=== PATIENT | female | born 1975 | race Caucasian/White ===

== ENCOUNTER → 2018-04-16 | Outpatient (CLI) | payer OTHER | END | disposition home or self-care (01) | LOC: RADUSWWP 07:36 | PROVIDERS: ATTEND Internal Medicine | DX: R23.0 Cyanosis (principal) | CPT/HCPCS: 93923 ==

== ENCOUNTER → 2023-11-17 | Outpatient (CLI) | payer OTHER ==
[2023-11-17 16:24] LABS: Chol/HDL Ratio 3.66 Ratio; LDL Cholesterol,Calculated 93.3 mg/dL (0.0-131.0); VLDL Calculation 18.62 mg/dL (5.00-40.00)
[2023-11-17 16:25] LABS: Basophils # (A) 0.06 X 10*3/uL (0.00-0.10); Basophils % (A) 0.9 %; Eosinophils # (A) 0.14 X 10*3/uL (0.04-0.35); Eosinophils % (A) 2.2 %; HGB 14.7 g/dL (12.0-15.0); Lymphocytes # (A) 1.76 X 10*3/uL (0.90-5.00); Lymphocytes % (A) 27.1 %; MCHC 33.4 g/dL (32.0-37.0); MCV 89.8 FL (80.0-97.0); Mean Platelet Volume 10.9 FL (9.5-12.2); Monocytes # (A) 0.39 X 10*3/uL (0.20-1.00); NRBC Per 100 WBC 0 X 10*3/uL (0.00-0.01); Neutrophils # (A) 4.12 X 10*3/uL (1.80-7.70); Neutrophils % (A) 63.5 %; Platelet Count 267 X 10*3/uL (140-440); RDW 12.4 % (11.5-14.5); WBC 6.49 X 10*3/uL (4.50-10.00)
[2023-11-17 16:41] LABS: ALT 16 U/L (8-44); AST 14 U/L (13-35); Albumin 4.3 g/dL (3.8-4.9); Albumin/Globulin Ratio 2.39 Ratio (1.60-3.17); Alkaline Phosphatase 78 U/L (41-126); BUN/Creat Ratio 18.33 Ratio (12.00-20.00); Calcium 9.2 mg/dL (8.7-10.3); Carbon Dioxide 22.6 mmol/L (21.6-31.8); Chloride 107 mmol/L (96-109); Globulin 1.8 g/dL (1.6-3.3); Glucose 102 mg/dL (70-110); Potassium 4.4 mmol/L (3.5-5.5); Sodium 140 mmol/L (135-145); Total Bilirubin <0.2 mg/dL (0.3-1.2); Total Protein 6.1 g/dL (6.2-8.2)
== END | disposition home or self-care (01) ==
LOC: LABWHC1 08:07
PROVIDERS: ATTEND Internal Medicine
DX: Z00.01 Encounter for general adult medical examination with abnormal findings (principal); Z13.220 Encounter for screening for lipoid disorders; E55.9 Vitamin D deficiency, unspecified; R53.83 Other fatigue
CPT/HCPCS: 36415; 80053; 80061; 82306; 84443; 85025

== ENCOUNTER → 2023-11-28 | Outpatient (CLI) | payer OTHER ==
--- NOTE | 2023-12-02 16:33 | MM ---
Reason for Exam: Screening (asymptomatic). Patient History: Menarche at age 16. First Full-Term at age 23. Last menstrual period: Risk Values: Myla 5 year model risk: 0.7%. NCI Lifetime model risk: 7.8%. Tissue Density: There are scattered areas of fibroglandular density. Findings: Analyzed By CAD. The pattern is symmetrical. No suspicious groups of microcalcifications, spiculated or lobular masses, architectural distortion or other secondary signs of malignancy are mammographically apparent. Overall Assessment: Benign, BI-RAD 2 Management: Screening Mammogram of both breasts in 1 year. A negative mammogram report should not preclude additional follow up of suspicious palpable abnormalities. Patient should continue monthly self breast exam. A clinical breast exam by your physician is recommended on an annual basis and results should be correlated with mammographic findings. Note on Myla scores and lifetime risk: 1. A Myla score greater than 3% is considered moderate risk. If this is the case, consider specialist referral to assess eligibility for a risk reducing agent. 2. If overall lifetime risk for the development of breast cancer is 20% or higher, the patient may qualify for future screening with alternating mammogram and breast MRI. Electronically signed and approved by: Eric Elaine D.O. Radiologis
== END | disposition home or self-care (01) ==
LOC: RADMAMWWP 06:53
PROVIDERS: ATTEND Internal Medicine
DX: Z12.31 Encounter for screening mammogram for malignant neoplasm of breast (principal)
CPT/HCPCS: 77063; 77067

== ENCOUNTER 2024-05-12 10:03 | Emergency (ER) | payer OTHER ==
--- NOTE | 2024-05-12 10:22 | ED ---
General Adult HPI - General Chief complaint: Eye Problems Stated complaint: Object in left eye Time Seen by Provider: 05/12/24 10:11 Source: patient, RN notes reviewed Mode of arrival: ambulatory Limitations: no limitations - History of Present Illness Initial comments: 49-year-old female presents to the emergency department for evaluation of left eye irritation x 2 days. Patient reports feeling like there is a foreign body in her eye. She denies any changes in her vision. Patient states that she attempted to flush the eye without any relief. She does report utilizing erythromycin ointment that she has at home. - Related Data Home Medications Medication Instructions Recorded Confirmed No Known Home Medications 10/07/14 10/07/14 Allergies Allergy/AdvReac Type Severity Reaction Status Date / Time adhesive Allergy Rash/Hives Verified 05/12/24 10:08 latex Allergy SKIN Verified 05/12/24 10:08 REDNESS Review of Systems ROS Statement: Those systems with pertinent positive or pertinent negative responses have been documented in the HPI. ROS Other: All systems not noted in ROS Statement are negative. Past Medical History Additional Past Medical History / Comment(s): SEE DR KING'S H&P, HALTER MONITOR RECENTLY ON & ADHESIVE FROM ELECTRODES LEFT RASHES TO SKIN History of Any Multi-Drug Resistant Organisms: None Reported Past Surgical History: Section, Ear Surgery, Tubal Ligation Past Anesthesia/Blood Transfusion Reactions: No Reported Reaction Additional Past Anesthesia/Blood Transfusion Reaction / Comment(s): NO BLOOD TRANSFUSIONS IN THE PAST Past Psychological History: No Psychological Hx Reported Smoking Status: Current every day smoker Past Alcohol Use History: None Reported Past Drug Use History: None Reported - Past Family History Mother Family Medical History: Myocardial Infarction ([place]) Additional Family Medical History / Comment(s): VERTIGO Father Additional Family Medical History / Comment(s): UNK HX General Exam Limitations: no limitations General appearance: alert, in no apparent distress Head exam: Present: atraumatic, normocephalic, normal inspection Eye exam: Present: PERRL, EOMI, other (Corneal abrasion of left eye visible on fluorescein stain, intraocular pressure 10 on left, 14 on right) ENT exam: Present: normal exam, mucous membranes moist Neck exam: Present: normal inspection. Absent: tenderness, meningismus, lymphadenopathy Respiratory exam: Present: normal lung sounds bilaterally. Absent: respiratory distress, wheezes, rales, rhonchi, stridor Cardiovascular Exam: Present: regular rate, normal rhythm, normal heart sounds. Absent: systolic murmur, diastolic murmur, rubs, gallop, clicks Neurological exam: Present: alert, oriented X3 Psychiatric exam: Present: normal affect, normal mood Skin exam: Present: warm, dry, intact, normal color. Absent: rash Course Vital Signs 05/12/24 05/12/24 10:06 11:10 Temperature 97.4 F L 98.4 F Pulse Rate 71 76 Respiratory 20 18 Rate Blood Pressure 117/65 142/68 O2 Sat by Pulse 100 97 Oximetry Medical Decision Making - Medical Decision Making Was pt. sent in by a medical professional or institution (, [facility], REIMBURSEMENT CONSULTANT, urgent care, hospital, or [facility]...) When possible be specific @ -No Did you speak to anyone other than the patient for history (EMS, parent, family, police, friend...)? What history was obtained from this source @ -No Did you review nursing and triage notes (agree or disagree)? Why? @ -I reviewed and agree with nursing and triage notes Were old charts reviewed (outside hosp., previous admission, EMS record, old EKG, old radiological studies, urgent care reports/EKG's, [facility] records)? Report findings @ -No old charts were reviewed Differential Diagnosis (chest pain, altered mental status, abdominal pain women, abdominal pain men, vaginal bleeding, weakness, fever, dyspnea, syncope, headache, dizziness, GI bleed, back pain, seizure, CVA, palpatations, mental health, musculoskeletal)? @ -Corneal foreign body, corneal abrasion, acute angle-closure glaucoma, stye, this list is not all inclusive EKG interpreted by me (3pts min.). @ -None X-rays interpreted by me (1pt min.). @ -None done CT interpreted by me (1pt min.). @ -None done U/S interpreted by me (1pt. min.). @ -None done What testing was considered but not performed or refused? (CT, X-rays, U/S, labs)? Why? @ -None What meds were considered but not given or refused? Why? @ -None Did you discuss the management of the patient with other professionals (professionals i.e. Dr., PA, REIMBURSEMENT CONSULTANT, lab, RT, psych nurse, social media developer, woodwind reeds cutter, teacher, consular officer, case management social worker)? Give summary @ -No Was smoking cessation discussed for >3mins.? @ -No Was critical care preformed (if so, how long)? @ -No Were there social determinants of health that impacted care today? How? (Homelessness, low income, unemployed, alcoholism, drug addiction, transportation, low edu. Level, literacy, decrease access to med. care, assisted, rehab)? @ -No Was there de-escalation of care discussed even if they declined (Discuss DNR or withdrawal of care, Hospice)? DNR status @ -No What co-morbidities impacted this encounter? (DM, HTN, Smoking, COPD, CAD, Cancer, CVA, ARF, Chemo, Hep., AIDS, mental health diagnosis, sleep apnea, morbid obesity)? @ -None Was patient admitted / discharged? Hospital course, mention meds given and route, prescriptions, significant lab abnormalities, going to OR and other pertinent info. @ -Discharge. Patient presented to the emergency department for evaluation of left eye discomfort. The patient underwent fluorescein staining revealing a corneal abrasion on the left. The patient had normal intraocular pressures with a pressure of 10 on the left and 14 on the right. Patient will be started on antibiotic eyedrops, ciprofloxacin and Toradol eyedrops for discomfort. She was instructed on use. Advised her to follow-up with her primary care provider and ophthalmology. Patient is understanding and agreeable with plan. Patient stable at time of discharge. Case discussed with Dr. Spivey Undiagnosed new problem with uncertain prognosis? @ -No Drug Therapy requiring intensive monitoring for toxicity (Heparin, Nitro, Insulin, Cardizem)? @ -No Were any procedures done? @ -No Diagnosis/symptom? @ -Corneal abrasion Acute, or Chronic, or Acute on Chronic? @ -acute Uncomplicated (without systemic symptoms) or Complicated (systemic symptoms)? @ -uncomplicated Side effects of treatment? @ -No Exacerbation, Progression, or Severe Exacerbation? @ -No Poses a threat to life or bodily function? How? (Chest pain, [place], [place], pneumonia, PE, COPD, DKA, ARF, appy, cholecystitis, CVA, Diverticulitis, Homicidal, Suicidal, threat to staff... and all critical care pts) @ -No Disposition Clinical Impression: Corneal abrasion Disposition: HOME SELF-CARE Condition: Stable Instructions (If sedation given, give patient instructions): Eye Foreign Body (ED) Additional Instructions: Utilize 2 ciprofloxacin drops every 6 hours and 1 ketorolac drop for pain every 6-8 hours. Please follow up with your primary care provider and ophthalmology. Return to the emergency department for new or worsening symptoms. Is patient prescribed a controlled substance at d/c from ED?: No Referrals: Aziza Blackmon MD [Primary Care Provider] - 1-2 days Paul Lopes MD [STAFF PHYSICIAN] - 1-2 days Clemente Augustine MD [STAFF PHYSICIAN] - 1-2 days
[2024-05-12] MEDS: FLUORESCEIN STRIPS 1 MG STRIP LEFT EYE ONE (10:28)
[2024-05-12] MEDS: PROPARACAINE 0.5% OPHTH DROPS 15 ML BTL LEFT EYE STA (10:28)
[2024-05-12] MEDS: KETOROLAC 0.5% OPHTH DROPS 5 ML BTL LEFT EYE STA (11:07)
[2024-05-12] MEDS: CIPROFLOXACIN 0.3% OPHTH SOLN 5 ML BTL LEFT EYE STA (11:08)
[2024-05-12 11:13] VITALS: BP 142/68; PULSE 76; RESP 18; TEMP 98.4
== END 2024-05-12 11:23 | disposition home or self-care (01) ==
LOC: EC 10:03
DX: S05.02XA Injury of conjunctiva and corneal abrasion without foreign body, left eye, initial encounter (principal); F17.200 Nicotine dependence, unspecified, uncomplicated; Z91.040 Latex allergy status; Z91.09 Other allergy status, other than to drugs and biological substances; W45.8XXA Other foreign body or object entering through skin, initial encounter
CPT/HCPCS: 99283

== ENCOUNTER → 2024-08-04 | Outpatient (CLI) | payer OTHER ==
[2024-08-04 15:12] LABS: HCT 43.1 % (37.2-46.3); HGB 13.9 g/dL (12.0-15.0); MCH 29.7 pg (27.0-32.0); MCHC 32.3 g/dL (32.0-37.0); MCV 92.1 FL (80.0-97.0); Mean Platelet Volume 10.3 FL (9.5-12.2); NRBC Per 100 WBC 0 X 10*3/uL (0.00-0.01); Platelet Count 309 X 10*3/uL (140-440); RBC 4.68 X 10*6/uL (4.10-5.20); RDW 13.7 % (11.5-14.5); WBC 8.63 X 10*3/uL (4.50-10.00)
[2024-08-04 15:26] LABS: ALT 17 U/L (8-44); AST 18 U/L (13-35); Albumin 4.4 g/dL (3.8-4.9); Alkaline Phosphatase 61 U/L (41-126); BUN/Creat Ratio 22.57 Ratio (12.00-20.00); Blood Urea Nitrogen 15.8 mg/dL (9.0-27.0); Calcium 8.8 mg/dL (8.7-10.3); Carbon Dioxide 24.1 mmol/L (21.6-31.8); Chloride 106 mmol/L (96-109); Glucose 97 mg/dL (70-110); Potassium 4.5 mmol/L (3.5-5.5); Sodium 140 mmol/L (135-145); T4, Free (Free Thyroxine) 1.08 ng/dL (0.80-1.80); Total Bilirubin <0.2 mg/dL (0.3-1.2); Total Protein 6.4 g/dL (6.2-8.2)
== END | disposition home or self-care (01) ==
LOC: LABWHC1 09:00
PROVIDERS: ATTEND Internal Medicine
DX: E05.90 Thyrotoxicosis, unspecified without thyrotoxic crisis or storm (principal)
CPT/HCPCS: 36415; 80053; 84439; 84443; 84481; 85027

== ENCOUNTER → 2024-11-30 | Outpatient (CLI) | payer OTHER ==
[2024-11-30 15:02] LABS: HCT 46.9 % (37.2-46.3); HGB 14.5 g/dL (12.0-15.0); MCHC 30.9 g/dL (32.0-37.0); MCV 93.8 FL (80.0-97.0); Mean Platelet Volume 10.6 FL (9.5-12.2); NRBC Per 100 WBC 0 X 10*3/uL (0.00-0.01); Platelet Count 309 X 10*3/uL (140-440); RDW 14.7 % (11.5-14.5); WBC 7.14 X 10*3/uL (4.50-10.00)
[2024-11-30 15:38] LABS: ALT 18 U/L (8-44); AST 18 U/L (13-35); Albumin 4.5 g/dL (3.8-4.9); Albumin/Globulin Ratio 2.05 Ratio (1.60-3.17); Alkaline Phosphatase 73 U/L (41-126); Bilirubin, Conjugated <0.20 mg/dL (0.20-0.40); Globulin 2.2 g/dL (1.6-3.3); T4, Free (Free Thyroxine) 0.77 ng/dL (0.80-1.80); Total Bilirubin <0.2 mg/dL (0.3-1.2); Total Protein 6.7 g/dL (6.2-8.2)
== END | disposition home or self-care (01) ==
LOC: LABWHC1 08:01
PROVIDERS: ATTEND Internal Medicine
DX: E05.90 Thyrotoxicosis, unspecified without thyrotoxic crisis or storm (principal)
CPT/HCPCS: 36415; 80076; 84439; 84443; 84481; 85027